=== PATIENT | female | born 1960 | race Caucasian/White ===

== ENCOUNTER 2022-01-13 02:49 | Emergency (ER) | payer MEDICAID ==
[~2022-01-13] VITALS: Ht 170.2 cm; Wt 73.0 kg
[~2022-01-13 02:49] MED LIST: ATEN-169 PO; CARB100T15 PO; HYDR12.55 PO; METR-159 PO; NICO-631 TD; ONDA4TAB9 SL
[2022-01-13] MEDS ORDERED: ondansetron/PF 4mg/2ml inj IV ONE (03:05)
[2022-01-13] MEDS ORDERED: fentaNYL/PF 50MCG/1 ML 2ML syringe IV ONE (03:05)
[2022-01-13] MEDS ORDERED: normal saline 1000ml 1,000 ML IV ONE ×2 (03:05→04:45)
[2022-01-13] MEDS ORDERED: GABA600T13 PO (03:06)
[2022-01-13] MEDS ORDERED: HYDR12.55 (03:06)
[2022-01-13] MEDS ORDERED: LIPA1CAP18 (03:06)
[2022-01-13] MEDS ORDERED: FLUT1AER INH (03:06)
[2022-01-13] MEDS ORDERED: ALBUTEROL (03:06)
[2022-01-13] MEDS ORDERED: OMEP40CA21 PO (03:06)
[2022-01-13] MEDS ORDERED: ALB0.5UD IH (03:07)
[2022-01-13 04:08] LABS: BASOPHILS % (AUTO) 0.4 % (0-1); EOSINOPHILS # (AUTO) 0.1 X10'3 (0-0.9); EOSINOPHILS % (AUTO) 0.7 % (0-6); HEMATOCRIT 45.7 % (35.0-45.0); HEMOGLOBIN 15.6 g/dl (12.0-16.0); LYMPHOCYTES # (AUTO) 1.2 X10'3 (1.1-4.8); LYMPHOCYTES % (AUTO) 15.2 % (21-51); MEAN CORPUSCULAR HEMOGLOBIN 33.5 PG (27.0-31.0); MEAN CORPUSCULAR HGB CONC 34.1 g/dL (33.0-36.5); MEAN CORPUSCULAR VOLUME 98.5 FL (78-98); MEAN PLATELET VOLUME 8.1 FL (7.4-10.4); MONOCYTES # (AUTO) 0.6 X10'3 (0-0.9); MONOCYTES % (AUTO) 7.6 % (2-12); NEUTROPHILS % (AUTO) 76.1 % (42-75); PLATELET COUNT 135 X10'3 (140-440); RED BLOOD COUNT 4.64 X10'6 (4.20-5.60); RED CELL DISTRIBUTION WIDTH 14.3 % (11.5-14.5); WHITE BLOOD COUNT 7.8 X10'3 (4.5-11.0)
[2022-01-13 04:12] LABS: ALANINE AMINOTRANSFERASE 61 U/L (12-78); ALBUMIN 3.4 G/DL (3.4-5.0); ALKALINE PHOSPHATASE 88 IU/L (46-116); ANION GAP 9 (8-16); ASPARTATE AMINO TRANSFERASE 93 U/L (10-37); BILIRUBIN,TOTAL 1.1 MG/DL (0.1-1.0); BLOOD UREA NITROGEN 15 MG/DL (7-18); BUN/CREATININE RATIO 14.4 (6.6-38.0); CALCIUM 8.5 MG/DL (8.5-10.1); CHLORIDE 103 MMOL/L (99-107); CREATININE 1.04 MG/DL (0.40-0.90); GLUCOSE 99 MG/DL (70-104); POTASSIUM 4.1 MMOL/L (3.5-5.1); SODIUM 139 MMOL/L (135-145); TOTAL CARBON DIOXIDE 27.2 MMOL/L (24-32); TOTAL PROTEIN 6.9 G/DL (6.4-8.2); eGFR 54 ML/MIN
[2022-01-13 04:29] LABS: LIPASE 1847 U/L (73-393)
[2022-01-13] MEDS ORDERED: morphine 4 MG/ML inj SYRINge IV ONE (04:45)
[2022-01-13] MEDS ORDERED: ONDA4TAB12 PO (05:35)
[2022-01-13] MEDS ORDERED: OXYC-658 PO (05:35)
[2022-01-13 05:56] VITALS: BP 162/75
== END 2022-01-13 05:59 | disposition home or self-care (01) ==
LOC: ER 02:49
DX: K85.90 Acute pancreatitis without necrosis or infection, unspecified (principal); I10 Essential (primary) hypertension; G89.29 Other chronic pain; M54.50 Low back pain, unspecified; Z88.8 Allergy status to other drugs, medicaments and biological substances
CPT/HCPCS: 74176; 80053; 83690; 84145; 84484; 85025; 96361; 96374; 96375; 99285; J2270; J2405; J3010; J7030

== ENCOUNTER 2022-08-27 00:28 | Emergency (ER) | payer MEDICAID ==
[~2022-08-27 00:28] MED LIST changes: +ALB0.5UD IH; -CARB100T15 PO; +FLUT1AER INH; +GABA600T13 PO; +HYDR12.55; -HYDR12.55 PO; +LIPA1CAP18; -METR-159 PO; -NICO-631 TD; +OMEP40CA21 PO; +ONDA4TAB12 PO
--- NOTE | 2022-08-27 01:47 | NUR ---
pt calling son from [facility], asking to be picked up.
[2022-08-27 02:13] LABS: BASOPHILS % (AUTO) 0.7 % (0-1); EOSINOPHILS # (AUTO) 0.1 X10'3 (0-0.9); EOSINOPHILS % (AUTO) 1.3 % (0-6); HEMATOCRIT 45.9 % (35.0-45.0); HEMOGLOBIN 15.8 g/dl (12.0-16.0); LYMPHOCYTES # (AUTO) 1.7 X10'3 (1.1-4.8); LYMPHOCYTES % (AUTO) 23.3 % (21-51); MEAN CORPUSCULAR HEMOGLOBIN 35.1 PG (27.0-31.0); MEAN CORPUSCULAR HGB CONC 34.5 g/dL (33.0-36.5); MEAN CORPUSCULAR VOLUME 101.7 FL (78-98); MEAN PLATELET VOLUME 8.1 FL (7.4-10.4); MONOCYTES # (AUTO) 0.7 X10'3 (0-0.9); NEUTROPHILS # (AUTO) 4.8 X10'3 (1.8-7.7); NEUTROPHILS % (AUTO) 65.7 % (42-75); PLATELET COUNT 173 X10'3 (140-440); RED BLOOD COUNT 4.51 X10'6 (4.20-5.60); RED CELL DISTRIBUTION WIDTH 15.7 % (11.5-14.5); WHITE BLOOD COUNT 7.3 X10'3 (4.5-11.0)
[2022-08-27 02:36] LABS: ALANINE AMINOTRANSFERASE 57 U/L (12-78); ALBUMIN 3.2 G/DL (3.4-5.0); ALBUMIN/GLOBULIN RATIO 0.8 (1.1-1.5); ALKALINE PHOSPHATASE 106 IU/L (46-116); ANION GAP 13 (8-16); ASPARTATE AMINO TRANSFERASE 82 U/L (10-37); BILIRUBIN,TOTAL 0.5 MG/DL (0.1-1.0); BLOOD UREA NITROGEN 5 MG/DL (7-18); BUN/CREATININE RATIO 6.8 (10.0-20.0); CHLORIDE 98 MMOL/L (99-107); CREATININE 0.74 MG/DL (0.40-0.90); GLUCOSE 97 MG/DL (70-104); SODIUM 138 MMOL/L (135-145); TOTAL CARBON DIOXIDE 26.6 MMOL/L (24-32); TOTAL PROTEIN 7.3 G/DL (6.4-8.2); eGFR 80 ML/MIN
[2022-08-27 02:38] LABS: POTASSIUM 2.8 MMOL/L (3.5-5.1)
== END 2022-08-27 02:14 | disposition left against medical advice (07) ==
LOC: ER 00:28
DX: R55 Syncope and collapse (principal); Z53.21 Procedure and treatment not carried out due to patient leaving prior to being seen by health care provider
CPT/HCPCS: 36415; 71045; 80053; 83880; 84484; 85025; 99281; 99284